=== PATIENT | male | born 1955 | race African-American/Black ===

== ENCOUNTER 2020-02-04 14:33 | Inpatient (IN) | payer OTHER, MEDICAID ==
[~2020-02-04] VITALS: Ht 180.3 cm; Wt 88.5 kg
--- NOTE | 2020-02-04 14:38 | NUR ---
PT IN WHEELCHAIR TO ER BED 07
[2020-02-04 14:47] VITALS: BP 130/80
--- NOTE | 2020-02-04 15:04 | NUR ---
65M wheelchaired to bed C/O SOB/ CHEST PAIN THAT IS NOT RESOLVED BY NTG STARTING LAST WEEK. PT WAS REFERRED HERE FROM [facility] DUE TO HAVING FLUID IN LUNGS AND NEEDING TO BE DIURESED. Observed patient for increased respiratory effort. Patient put on 4L Nasal cannula. Abdomen distended and tender to touch. pt. reports having N/V/D. Last BM was this morning and loose. Observed sores and bruise on BUE due to increased fall within the previous month. Observed bilateral piting edema on the BLE. Palpable pedal pulses bilaterally. PMH: UT, HEART FAILURE, CARDIOMYOPATHY Addendum: 02/04/20 at 1525 by [facility] Dimished breath sounds heard on all lung worley.
[2020-02-04] MEDS ORDERED: FUROSEMIDE 40 MG/4 ML VIAL IVP ONE (15:20)
--- NOTE | 2020-02-04 15:26 | NUR ---
XRAY AT BEDSIDE.
--- NOTE | 2020-02-04 15:45 | NUR ---
pt given urinal for urine sample and for frequent urination after lasix was administered
[2020-02-04] MEDS ORDERED: LEVOFLOXACIN 750 MG/D5W PREMIX 150 ML IV ONE (15:50)
[2020-02-04] MEDS ORDERED: AZITHROMYCIN 500 MG in DEXTROSE 5% 250 ML IV ONE (15:50)
--- NOTE | 2020-02-04 16:03 | NUR ---
LAB AT BEDSIDE
[2020-02-04 16:11] LABS: BASOPHILS % (AUTO) 0.7 % (0.0-2.0); EOSINOPHILS % (AUTO) 0.4 % (0.0-4.0); HEMATOCRIT 48.5 % (36-52); HEMOGLOBIN 15.6 g/dL (12.0-18.0); LYMPHOCYTES # (AUTO) 1.4 K/uL (2.0-11.5); MEAN CORPUSCULAR HEMOGLOBIN 30 pg (27-31); MEAN CORPUSCULAR HGB CONC 32 g/dL (33-37); MEAN CORPUSCULAR VOLUME 94.6 fL (80-94); MONOCYTES # (AUTO) 0.4 K/uL (0.8-1.0); MONOCYTES % (AUTO) 9.3 % (1.7-9.3); NEUTROPHILS # (AUTO) 2.2 K/uL (1.8-7.7); NEUTROPHILS % (AUTO) 54.6 % (42.2-75.2); PLATELET COUNT (AUTO) 116 K/uL (140-450); RED BLOOD CELL COUNT(AUTO) 5.13 MIL/uL (4.20-6.10); RED CELL DISTRIBUTION WIDTH 22.1 % (11.6-13.7); WHITE BLOOD COUNT (AUTO) 4.1 K/uL (4.8-10.8)
[2020-02-04] MEDS ORDERED: AZITHROMYCIN 500 MG INJ VIAL IV ONE (16:13)
--- NOTE | 2020-02-04 16:21 | NUR ---
LAB UNABLE TO DRAW BLOOD CULTURES, PENDING ANTIBIOTICS
[2020-02-04 16:30] LABS: ALBUMIN 2.3 g/dL (3.4-5.0); ANION GAP 10.4 (8-16); CARBON DIOXIDE 28.4 mmol/L (21-32); CREATININE 1.1 mg/dL (0.6-1.3); POTASSIUM 3.8 mmol/L (3.5-5.1); TOTAL BILIRUBIN 1.3 mg/dL (0.0-1.0)
[2020-02-04] MEDS: NACL 0.9% 1,000 ML IV SCH (16:34)
[2020-02-04] MEDS ORDERED: ACETAMINOPHEN 325 MG TAB PO PRN (16:35)
[2020-02-04] MEDS ORDERED: DOCUSATE SODIUM 100 MG GELCAP PO PRN (16:35)
[2020-02-04] MEDS ORDERED: HYDROcodone/APAP 7.5/325 MG 1 TAB PO PRN (16:35)
[2020-02-04] MEDS ORDERED: ONDANSETRON 4 MG/2 ML VIAL IM/IVP PRN (16:35)
[2020-02-04 16:51] LABS: APPEARANCE,URINE CLEAR (CLEAR); BILIRUBIN,URINE NEGATIVE (NEGATIVE); BLOOD, URINE NEGATIVE (NEGATIVE); COLOR,URINE YELLOW (YELLOW); LEUKOCYTE ESTERASE ,URINE NEGATIVE (NEGATIVE); NITRITE, URINE NEGATIVE (NEGATIVE); PH,URINE 6.5 (5.0-9.0); UGLUCOSE NEGATIVE (NEGATIVE)
--- NOTE | 2020-02-04 16:52 | NUR ---
LAB AT BEDSIDE.
--- NOTE | 2020-02-04 16:55 | NUR ---
LAB AT BEDSIDE, UNABLE TO DRAW BLOOD CULTURES FOR A SECOND TIME.
--- NOTE | 2020-02-04 17:08 | NUR ---
NADR TO LASIX MEDICATION.
--- NOTE | 2020-02-04 17:14 | NUR ---
UNABLE TO DRAW BLOOD CULTURES STILL.
[2020-02-04] MEDS ORDERED: ALBUTEROL SULFATE/IPRATROPIU 3 ML SOL IH PRN (17:15)
[2020-02-04] MEDS ORDERED: NITROGLYCERIN 0.4 MG TAB SL PRN (17:15)
--- NOTE | 2020-02-04 17:15 | NUR ---
NO OPEN WOUNDS. SCABS PRESENT TO BILATERAL ARMS
[2020-02-04] MEDS ORDERED: ENAL5TAB48 PO (17:16)
[2020-02-04] MEDS ORDERED: CARV6.25 PO (17:16)
[2020-02-04] MEDS ORDERED: FLUO10CA21 PO (17:16)
[2020-02-04] MEDS ORDERED: NITR0.4T2 SL (17:16)
[2020-02-04] MEDS ORDERED: FURO-572 PO (17:16)
[2020-02-04] MEDS ORDERED: ATOR10TA PO (17:16)
[2020-02-04 17:20] LABS: BARBITURATE, URINE NEGATIVE ng/ml (NEG <=200); BENZODIAZEPINE, URINE NEGATIVE ng/mL (NEG <=200); CANNABINOID, URINE NEGATIVE ng/mL (NEG <=50); COCAINE, URINE POSITIVE ng/mL (NEG <=300); OPIATE, URINE NEGATIVE ng/mL (NEG <=2000); PHENCYCLIDINE SCREEN,URINE NEGATIVE ng/mL (NEG <=25)
--- NOTE | 2020-02-04 18:05 | NUR ---
RECEIVED BEDSIDE SHIFT REPORT FROM HUB INVENTORY SPECIALIST NURSE FOR CONTINUATION OF CARE.
--- NOTE | 2020-02-04 18:05 | NUR ---
Patient will be admitted to care of Dr. Cali. Admited to Tele. Will go to room 126B. Belongings list completed. VSS. Report to SHERRI Flores.
--- NOTE | 2020-02-04 18:05 | NUR ---
NADR, PAIN 04/07
[2020-02-04 18:07] LABS: PROTHROMBIN TIME 15.3 secs (10.8-13.4)
--- NOTE | 2020-02-04 18:09 | NUR ---
BLOOD CULTURES ACQUIRED AND AZITHROMYCIN STARTED PRIOR TO TRANSFER.
[2020-02-04 18:19] LABS: MAGNESIUM 1.6 mg/dL (1.8-2.4); PHOSPHORUS 2.8 mg/dL (2.5-4.9); THYROID STIMULATING HORMONE 3.85 uIU/mL (0.34-3.74)
[2020-02-04] MEDS: AZITHROMYCIN 250 MG in DEXTROSE 5% 250 ML IV SCH (18:59)
[2020-02-04] MEDS: MORPHINE SULFATE 2 MG/ML SYR IVP PRN (19:00)
--- NOTE | 2020-02-04 19:25 | NUR ---
BEDSIDE SHIFT REPORT GIVEN TO OTOLARYNGOLOGY SURGEON FOR CONTINUATION OF CARE.
[2020-02-04] MEDS ORDERED: cefTRIAXone 1,000 MG VIAL ONE (19:42)
[2020-02-04 20:00] VITALS: BP 140/59
[2020-02-04] MEDS: ALBUTEROL SULFATE/IPRATROPIU 3 ML SOL IH SCH (20:10)
--- NOTE | 2020-02-04 20:25 | NUR ---
RECEIVED PT FROM AM SHIFT. PT IS IN NO APPARENT RESPIRATORY DISTRESS AT THIS TIME: HR 81, RR 18, COURSE BREATH SOUNDS, AND SPO2 90% ON 4L NC. HHN TX GIVEN ORDERED WITH NO ADVERSE REACTION. HOB > 30 DEGREES, BVM AT BEDSIDE. WILL CONTINUE TO MONITOR PT.
--- NOTE | 2020-02-04 20:26 | NUR ---
RECEIVED PT FROM AM SHIFT NURSE FOR PENDING ADMIT, PT SLEEPING AT THIS TIME. WITH LEVAQUIN ON THE RIGHT FA G 22, LEVAQUIN INFUSING RIGHT NOW. PER PREVIOUS SHIFT PT Pema Mcadams O X 4. ON 2 LPM NC, WILL CONTINUE TO MONITOR. PLACED ON LOW BED. CALL LIGHT WITHIN REACH.
--- NOTE | 2020-02-04 21:41 | NUR ---
PT C/O OF CHEST PAIN WHEN RT WAS AT BEDSIDE, TAKING HIS ABG PAIN IS 6/10 PER PT. Addendum: 02/04/20 at 2151 by Delores Dai RN WILL ADMINISTER NITROGLYCERIN AND WILL REASSESS
--- NOTE | 2020-02-04 21:42 | NUR ---
BAR CODE OF NITROGLYCERIN 25 TABS IN 1 VIAL, TOOK 1, CANNOT SCAN ANYMORE SINCE PUT THE VIAL BACK THERE AND TOOK ONLY 1 TAB OIUT OF THE 25 TABS IN 1 VIAL. CHARGE NURSE AWARE.
--- NOTE | 2020-02-04 21:43 | NUR ---
PT ASKED ABOUT DIARRHEA, SAID THAT HE HAD IT AT HOME (CHRONIC), WILL INFORM ME ONCE HE CAN HAVE A BM. WILL INFORM IF STOOL IS WATERY. FOR OBSERVATION YET
--- NOTE | 2020-02-04 23:00 | NUR ---
PT SLEEPING NOW; NO MORE COMPLAINTS OF CHEST PAIN; WILL MONITOR
[2020-02-05] VITALS: BP 139/59
--- NOTE | 2020-02-05 00:10 | NUR ---
PT SLEEPING IN BED COMFORTABLY. NO ACUTE DISTRESS NOTED. Addendum: 02/06/20 at 0110 by Chris Wharton RN WRONG TIME
[2020-02-05 04:00] VITALS: BP 113/77
--- NOTE | 2020-02-05 06:06 | NUR ---
INCENTIVE SPIROMETRY DONE. # OF BREATHS 10 WITH AVERAGE VOLUME OF 1500ML. PREDICTED VOLUME 1800ML.
--- NOTE | 2020-02-05 06:15 | NUR ---
PT HAD A BM, WTAREY BUT W/ SOME MODERATE FORMED STOOL NOTED. Addendum: 02/05/20 at 0616 by Delores Dai RN PT CLEANED AND CHANGED
--- NOTE | 2020-02-05 06:49 | NUR ---
PT SLEEPING BUT EASILY AROUSABLE, PT IN STABLE CONDITION AT THIS TIME, WILL ENDORSE TO NEXT SHIFT
--- NOTE | 2020-02-05 07:25 | NUR ---
RECEIVED REPORT FROM ASBESTOS ABATEMENT TECHNICIAN NURSE. PT IS SLEEPING, NO SIGNS OF DISTRESS. PT HAS IV ON RIGHT FA G22 TKO. PT HAS O2 AT 2LPM. PT IS FROM HOME, FULL CODE, NKA. CALL LIGHT WITHIN PT'S REACH, BED ON LOW, SIDE RAILS UP. WILL CONTINUE TO MONITOR.
[2020-02-05 07:52] LABS: CHOL/HDL RATIO 4.2 (1-4.5)
[2020-02-05 08:00] VITALS: BP 135/61
[2020-02-05] MEDS: ALBUTEROL SULFATE/IPRATROPIU 3 ML SOL IH SCH ×3 (08:32→19:00)
--- NOTE | 2020-02-05 08:48 | NUR ---
PATIENT HAS BEEN SCREENED AND CATEGORIZED MODERATE NUTRITION RISK. PATIENT WILL BE SEEN WITHIN 3-5 DAYS OF ADMISSION. 02/07/20 02/09/[address]
[2020-02-05] MEDS: ASPIRIN 81 MG TAB.CHEW PO SCH (10:47)
[2020-02-05] MEDS: FUROSEMIDE 40 MG/4 ML VIAL IVP SCH ×2 (10:48→17:23)
[2020-02-05] MEDS: LACTOBACILLUS RHAMNOSUS GG 1 EACH CAP PO SCH (10:48)
--- NOTE | 2020-02-05 10:55 | NUR ---
SCHEDULED MEDS GIVEN. PT TOLERATED WELL. WILL CONTINUE TO MONITOR
[2020-02-05 12:00] VITALS: BP 107/81
[2020-02-05] MEDS: MORPHINE SULFATE 2 MG/ML SYR IVP PRN (12:43)
--- NOTE | 2020-02-05 12:43 | NUR ---
PT COMPLAINED OF ABDOMINAL PAIN 08/08. MORPHINE IVP GIVEN. WILL CONTINUE TO MONITOR
--- NOTE | 2020-02-05 13:30 | NUR ---
CHERIE FROM LAB CALLED FOR CRITICAL LAB LACTIC ACID 2.7, WAS INFORMED
[2020-02-05 16:00] VITALS: BP 118/82
[2020-02-05] MEDS: NACL 0.9% 1,000 ML IV SCH (16:34)
--- NOTE | 2020-02-05 17:30 | NUR ---
SCHEDULED MEDS GIVEN. WILL CONTINUE TO MONITOR
[2020-02-05] MEDS: AZITHROMYCIN 250 MG in DEXTROSE 5% 250 ML IV SCH (19:02)
--- NOTE | 2020-02-05 19:20 | NUR ---
REPORT GIVEN TO ELEVATING GRADER OPERATOR NURSE. PT IS STABLE. CALL LIGHT WITHIN PT'S REACH.
--- NOTE | 2020-02-05 19:21 | NUR ---
RECEIVED REPORT FROM DAY SHIFT NURSE, GERI. PT AWAKE, RESTING IN BED, NO SIGNS OF DISTRESS. PT HAS IV ON RIGHT FA G22 TKO. BREATHING EVEN AND UNLABORED WITH O2 AT 2LPM. BOARD UPDATED, SKIN INTACT, WARM AN DRY TO TOUCH. CALL LIGHT WITHIN PT'S REACH, BED ON LOW, SIDE RAILS UP. WILL CONTINUE TO MONITOR.
--- NOTE | 2020-02-05 19:39 | NUR ---
PATIENT REFUSED 1900 HHNTX. PT HAD ONE AT 1545. PT WILL CALL IF HE NEEDS ONE AT NIGHT. NO SOB NOTED
[2020-02-05 20:00] VITALS: BP 114/78
--- NOTE | 2020-02-05 20:18 | NUR ---
GIVEN HEPARIN MD ORDERED. PT TOLERATED WELL.
--- NOTE | 2020-02-05 22:15 | NUR ---
PT SLEEPING IN BED COMFORTABLY. NO ACUTE DISTRESS NOTED.
[2020-02-06] VITALS: BP 102/73
--- NOTE | 2020-02-06 00:10 | NUR ---
PT SLEEPING IN BED COMFORTABLY. NO ACUTE DISTRESS NOTED.
--- NOTE | 2020-02-06 02:31 | NUR ---
PT SLEEPING IN BED. NO ACUTE DISTRESS NOTED. WILL CONTINUE TO MONITOR.
[2020-02-06 04:00] VITALS: BP 125/90
--- NOTE | 2020-02-06 05:05 | NUR ---
RECEIVED CALL FROM LAB FOR BLOOD CULTURE RESULT, GRAM POSITIVE COCCI, REPORTED TO RESIDENT
[2020-02-06 06:24] LABS: BASOPHILS # (AUTO) 0.1 K/uL (0.00-0.22); BASOPHILS % (AUTO) 2.4 % (0.0-2.0); EOSINOPHILS % (AUTO) 0.5 % (0.0-4.0); HEMATOCRIT 45.8 % (36-52); HEMOGLOBIN 14.7 g/dL (12.0-18.0); LYMPHOCYTES # (AUTO) 1.7 K/uL (2.0-11.5); LYMPHOCYTES % (AUTO) 36.4 % (20.5-51.1); MEAN CORPUSCULAR HEMOGLOBIN 30 pg (27-31); MEAN CORPUSCULAR HGB CONC 32 g/dL (33-37); MEAN CORPUSCULAR VOLUME 94.7 fL (80-94); MONOCYTES # (AUTO) 0.6 K/uL (0.8-1.0); MONOCYTES % (AUTO) 12.3 % (1.7-9.3); NEUTROPHILS # (AUTO) 2.3 K/uL (1.8-7.7); NEUTROPHILS % (AUTO) 48.4 % (42.2-75.2); PLATELET COUNT (AUTO) 123 K/uL (140-450); RED BLOOD CELL COUNT(AUTO) 4.84 MIL/uL (4.20-6.10); RED CELL DISTRIBUTION WIDTH 21.9 % (11.6-13.7); WHITE BLOOD COUNT (AUTO) 4.7 K/uL (4.8-10.8)
[2020-02-06 06:35] LABS: ANION GAP 12.7 (8-16); CARBON DIOXIDE 28.5 mmol/L (21-32); CREATININE 1.5 mg/dL (0.6-1.3); POTASSIUM 4.2 mmol/L (3.5-5.1)
[2020-02-06 06:50] LABS: MAGNESIUM 1.7 mg/dL (1.8-2.4); PHOSPHORUS 3.8 mg/dL (2.5-4.9)
[2020-02-06] MEDS: ALBUTEROL SULFATE/IPRATROPIU 3 ML SOL IH SCH ×3 (07:00→19:00)
--- NOTE | 2020-02-06 07:16 | NUR ---
ENDORSED PT TO DAY SHIFT NURSEGERI FOR CONTINUOUS CARE.
--- NOTE | 2020-02-06 07:22 | NUR ---
RECEIVED REPORT FROM PROCESS SPECIALIST NURSE. PT IS SLEEPING. NO SIGNS OF DISTRESS. WILL CONTINUE TO MONITOR
[2020-02-06 08:00] VITALS: BP 137/100
[2020-02-06] MEDS ORDERED: CARVEDILOL 6.25 MG TAB PO SCH (09:13)
[2020-02-06] MEDS: FUROSEMIDE 40 MG/4 ML VIAL IVP SCH ×2 (10:12→16:13)
[2020-02-06] MEDS: LACTOBACILLUS RHAMNOSUS GG 1 EACH CAP PO SCH (10:13)
[2020-02-06] MEDS: ATORVASTATIN 20 MG TAB PO SCH (10:13)
[2020-02-06] MEDS: ASPIRIN 81 MG TAB.CHEW PO SCH (10:13)
--- NOTE | 2020-02-06 10:25 | NUR ---
SCHEDULED MEDS GIVEN EXCEPT HEPARIN HOLD PER PARAMETER. PLT IS 123. PT TOLERATED WELL. PT WAS INSTRUCTED TO CALL THE NURSE ONCE HE PEE SO WE CAN SEND THE SAMPLE TO THE LAB. PT VERBALIZED UNDERSTANDING.WILL CONTINUE TO MONITOR.
--- NOTE | 2020-02-06 10:43 | NUR ---
Late entry. Confirmed with RN that Zithromax IV started at 1745 and completed at 1845
[2020-02-06 12:00] VITALS: BP 126/94
--- NOTE | 2020-02-06 12:29 | NUR ---
* ST NOTE * Pt seen at bedside w/ present. Pt consenting to session w/ present. Pt alert, cooperative and engaged throughout session, reporting no c/o pain at this time. Pt's reporting he has dentures at home but does not prefer to use them. Bedside dysphagia and oral mechanism exams completed. See evaluation report for further details. Pt tolerating 2/2 alternating PO trials of regular solid saltine crackers, initially moistening/soaking crackers in saliva prior to mastication and initiation of swallow. Pt presenting with mild to occasional residue in oral cavity during and after PO intake of regular solids at this time. Pt reporting he "hates" puree texture however. Pt also tolerating 4/4 alternating PO trials of successive sips of thin liquid apple juice via a straw, all w/o s/s of aspiration or choking. Because pt demonstrating difficulty masticating solids at this time, pt presenting with mild oral phase dysphagia and suspected pharyngeal swallow WFL. Clinician thus recommending PO diet consistency of moist, mechanical soft-ground textures w/thin liquids for all meals. Pt and education completed re: aspiration precautions, safe swallow compensatory strategies, and ways to prepare recommended PO diet consistency at home, w/both verbalizing understanding and agreement w/clinician's recommendations. No further ST follow up recommended at this time. Pt, caregiver/ and caregiver/Nsg Luz education completed re: results of evaluation; benefits of abiding by recommended PO diet consistency and aspiration precautions; and prognosis for improvement; with pt and caregiver/ verbalizing understanding and agreement w/clinician's recommendations w/all of pt's and 's questions answered by clinician. Recommend: - PO DIET CONSISTENCY OF MECHANICAL SOFT-GROUND MOIST TEXTURES W/THIN LIQUIDS for all meals - WHOLE PILL PO MEDICATION ADMINISTRATION 1 PILL AT A TIME W/PUREE TEXTURES (PUDDING OR APPLE SAUCE) - FNS/DIETARY SERVICES: ADD EXTRA SAUCE/GRAVY TO MEATS AND VEGETABLES PLEASE FOR MOIST GROUND TEXTURE - Pt requires assistance w/feeding - CUE/REMIND PT TO SIT UP AT 80-90 DEGREE ANGLE DURING PO INTAKE; EAT/DRINK SLOWLY; ALTERNATE BTWN SOLIDS & LIQUIDS; AND TO USE SMALL BITES/SIPS No further ST follow up recommended at this time. NOMS Level 3 Time In/Out 11:15 - 11:45
[2020-02-06 16:00] VITALS: BP 109/66
[2020-02-06] MEDS: CARVEDILOL 6.25 MG TAB PO SCH (16:13)
--- NOTE | 2020-02-06 16:21 | NUR ---
SCHEDULED MEDS GIVEN. PT TOLERATED WELL.
[2020-02-06] MEDS: NACL 0.9% 1,000 ML IV SCH (16:34)
[2020-02-06] MEDS: AZITHROMYCIN 250 MG in DEXTROSE 5% 250 ML IV SCH (17:26)
--- NOTE | 2020-02-06 19:27 | NUR ---
REPORT GIVEN TO SPANISH MEDICAL INTERPRETER NURSE FOR CONTINUITY OF CARE. PT IS STABLE. CALL LIGHT WITHIN PT'S REACH. BE D ON LOW, SIDE RAILS UP.
[2020-02-06] MEDS ORDERED: VANCOMYCIN PER PHARMACY MC PRN (19:45)
[2020-02-06 20:00] VITALS: BP 118/75
[2020-02-06] MEDS ORDERED: VANCOMYCIN HCL 1,250 MG in NACL 0.9% 250 ML IV SCH (20:25)
[2020-02-07] VITALS: BP 105/69
[2020-02-07 04:00] VITALS: BP 110/65
[2020-02-07 06:20] LABS: MAGNESIUM 1.5 mg/dL (1.8-2.4); PHOSPHORUS 4.1 mg/dL (2.5-4.9)
[2020-02-07 06:25] LABS: ANION GAP 10.7 (8-16); CARBON DIOXIDE 32.3 mmol/L (21-32); CREATININE 1.4 mg/dL (0.6-1.3)
[2020-02-07 06:31] LABS: BASOPHILS # (AUTO) 0.1 K/uL (0.00-0.22); BASOPHILS % (AUTO) 1.8 % (0.0-2.0); HEMATOCRIT 44.1 % (36-52); HEMOGLOBIN 14.3 g/dL (12.0-18.0); LYMPHOCYTES # (AUTO) 1.6 K/uL (2.0-11.5); LYMPHOCYTES % (AUTO) 37.8 % (20.5-51.1); MEAN CORPUSCULAR HEMOGLOBIN 31 pg (27-31); MEAN CORPUSCULAR HGB CONC 32 g/dL (33-37); MEAN CORPUSCULAR VOLUME 94.5 fL (80-94); MONOCYTES # (AUTO) 0.4 K/uL (0.8-1.0); MONOCYTES % (AUTO) 9.2 % (1.7-9.3); NEUTROPHILS # (AUTO) 2.1 K/uL (1.8-7.7); NEUTROPHILS % (AUTO) 50.2 % (42.2-75.2); PLATELET COUNT (AUTO) 127 K/uL (140-450); RED BLOOD CELL COUNT(AUTO) 4.66 MIL/uL (4.20-6.10); RED CELL DISTRIBUTION WIDTH 22.1 % (11.6-13.7); WHITE BLOOD COUNT (AUTO) 4.2 K/uL (4.8-10.8)
[2020-02-07] MEDS: ALBUTEROL SULFATE/IPRATROPIU 3 ML SOL IH SCH ×3 (06:57→19:34)
--- NOTE | 2020-02-07 07:30 | NUR ---
RECEIVED REPORT FROM SUPERVISOR PLEATING NURSE. PATIENT LYING DOWN IN BED SLEEPING, AROUSABLE BY VOICE. NO DISTRESS NOTED. DENIES ANY PAIN. AAOX4, CALM, COOPERATIVE, SKIN COLOR APPROPRIATE TO ETHNICITY, WARM TO TOUCH. SKIN INTACT. RESPIRATIONS EVEN, UNLABORED, ON ROOM AIR. IV SITE INTACT, PATENT, AND INFUSING IVF PER MD ORDERS. SAFETY MEASURES IN PLACE, CALL LIGHT WITHIN REACH. WILL CONTINUE TO MONITOR.
[2020-02-07 08:00] VITALS: BP 129/87
[2020-02-07] MEDS ORDERED: VANCOMYCIN 1,000 MG in DEXTROSE 5% 250 ML IV SCH (09:00)
--- NOTE | 2020-02-07 09:09 | NUR ---
DISCHARGE PLANNING: RECEIVED AN AN ORDER FOR DC PLAN TO SNF TOMORROW FOR IV ANTIBIOTICS AND PT. MET WITH THE PATIENT AT THE BEDSIDE TO DISCUSS DC PLANNING. HE STATED TO WAIT FOR HIS . CONTACTED TAVON LAZARO AT [phone] REGARDING DC PLAN, SHE STATED SHE WILL BE IN THE HOSPITAL BEFORE NOON TO SEE HER . PRIMARY RN NABOR MADE AWARE TO INFORM ME ONCE THE IS HERE. Addendum: 02/07/20 at 1700 by Katherine Lambert CM LATE ENTRY: MET WITH THE PATIENT AND HIS AT THE BEDSIDE, IMM AND CHOICE LETTER DISCUSSED. ALL QUESTIONS AND CONCERNS ANSWERED. SIGNED AND PLACED IN THE CHART. PER [facility], THEY ARE ABLE TO ACCEPT THE PATIENT. Addendum: 02/08/20 at 1025 by Blaire Pena CM DC PLANNING: RECEIVED A CALL FROM [facility] ,PT CAN GO TO ROOM 12B AND PER [facility] WILL ARRANGE TRANSPORT RADIOLOGY ADMINISTRATOR TIME WILL BE 2 PM # TO GIVE REPORT [phone] NOTIFIED ALIS POLANCO
[2020-02-07] MEDS: ATORVASTATIN 20 MG TAB PO SCH (10:02)
[2020-02-07] MEDS: FLUoxetine 10 MG CAP PO SCH (10:02)
[2020-02-07] MEDS: ASPIRIN 81 MG TAB.CHEW PO SCH (10:06)
[2020-02-07] MEDS: CARVEDILOL 6.25 MG TAB PO SCH ×2 (10:06→18:27)
[2020-02-07] MEDS: FUROSEMIDE 40 MG TAB PO SCH (10:06)
[2020-02-07] MEDS: LACTOBACILLUS RHAMNOSUS GG 1 EACH CAP PO SCH (10:06)
--- NOTE | 2020-02-07 10:19 | NUR ---
PATIENT LYING DOWN IN BED, SLEEPING, AROUSABLE BY VOICE. NO DISTRESS NOTED. DENIES ANY PAIN. SCHEDULED MEDICATIONS DUE GIVEN. WILL CONTINUE TO MONITOR.
[2020-02-07] MEDS ORDERED: MAG SULF 2000 MG/WATER PREMIX 50 ML IV SCH (11:00)
[2020-02-07 12:00] VITALS: BP 125/82
--- NOTE | 2020-02-07 12:53 | NUR ---
PATIENT LYING DOWN IN BED SLEEPING, AROUSABLE BY VOICE. NO DISTRESS NOTED. DENIES ANY PAIN. SCHEDULED MEDICATIONS DUE GIVEN. WILL CONTINUE TO MONITOR.
--- NOTE | 2020-02-07 15:15 | NUR ---
PATIENT LYING DOWN IN BED SLEEPING, AROUSABLE BY VOICE. NO DISTRESS NOTED. CONDITION UNCHANGED. WILL CONTINUE TO MONITOR.
[2020-02-07 16:00] VITALS: BP 130/80
[2020-02-07] MEDS: NACL 0.9% 1,000 ML IV SCH (16:34)
[2020-02-07] MEDS: AZITHROMYCIN 250 MG in DEXTROSE 5% 250 ML IV SCH (18:26)
--- NOTE | 2020-02-07 18:27 | NUR ---
SCHEDULED MEDICATIONS DUE GIVEN. WILL CONTINUE TO MONITOR.
--- NOTE | 2020-02-07 19:18 | NUR ---
GAVE REPORT TO METAPHYSICIST NURSE FOR CONTINUITY OF CARE. PATIENT IN STABLE CONDTION.
--- NOTE | 2020-02-07 19:20 | NUR ---
RECEIVED PT ON BED, AAOX4, VITAL SIGNS STABLE, DENIES ANY PAIN, NO SOB NOTED, UNABLE TO COLLECT SPUTUM SPECIMEN, PT DRY AND NO PHLEGM, SPECIMEN CONTAINER AT BEDSIDE, IVF INFUSING WELL, PLAN OF CARE DISCUSSED, SAFETY MEASURES IN PLACE, BED LOCKED AND IN LOWEST POSITION, CALL LIGHT WITHIN REACH.
[2020-02-07 20:00] VITALS: BP 124/85
--- NOTE | 2020-02-07 21:20 | NUR ---
PT REFUSED HEPARIN, STATED NOT TONIGHT, RISK AND BENEFITS EXPLAINED BUT PT STILL REFUSING, VOIDED FREELY PER URINAL, NO DISTRESS NOTED, MONITORED CLOSELY.
[2020-02-08] VITALS: BP 108/72
--- NOTE | 2020-02-08 | NUR ---
PT SLEEPING, EASILY AROUSABLE, VITAL SIGNS STABLE, DENIES ANY PAIN, NO SOB NOTED, IVF INFUSING WELL, CONTINUE TO MONITOR CLOSELY.
[2020-02-08 04:00] VITALS: BP 110/72
--- NOTE | 2020-02-08 04:00 | NUR ---
PT SLEEPING, EASILY AROUSABLE, VITAL SIGNS STABLE, NO SOB NOTED, IVF INFUSING WELL, MONITORED CLOSELY.
[2020-02-08 05:55] LABS: BASOPHILS % (AUTO) 1.6 % (0.0-2.0); EOSINOPHILS % (AUTO) 0.8 % (0.0-4.0); HEMATOCRIT 41.1 % (36-52); HEMOGLOBIN 13.6 g/dL (12.0-18.0); LYMPHOCYTES # (AUTO) 1.1 K/uL (2.0-11.5); LYMPHOCYTES % (AUTO) 40.8 % (20.5-51.1); MEAN CORPUSCULAR HEMOGLOBIN 31 pg (27-31); MEAN CORPUSCULAR HGB CONC 33 g/dL (33-37); MEAN CORPUSCULAR VOLUME 93.5 fL (80-94); MONOCYTES # (AUTO) 0.2 K/uL (0.8-1.0); MONOCYTES % (AUTO) 8.3 % (1.7-9.3); NEUTROPHILS # (AUTO) 1.3 K/uL (1.8-7.7); NEUTROPHILS % (AUTO) 48.5 % (42.2-75.2); PLATELET COUNT (AUTO) 104 K/uL (140-450); WHITE BLOOD COUNT (AUTO) 2.7 K/uL (4.8-10.8)
[2020-02-08 06:32] LABS: ANION GAP 9.8 (8-16); CARBON DIOXIDE 29.2 mmol/L (21-32); CREATININE 1.1 mg/dL (0.6-1.3)
[2020-02-08 06:43] LABS: MAGNESIUM 1.7 mg/dL (1.8-2.4); PHOSPHORUS 3.1 mg/dL (2.5-4.9)
--- NOTE | 2020-02-08 06:50 | NUR ---
NEW ORDER OF PICC LINE INSERTION TODAY, SOFTWARE QUALITY AUTOMATION ENGINEER AMADA CALLED PICC LINE NURSE AND LEFT MESSAGE, PT SLEEPING AT THIS TIME, WILL ENDORSE TO AM SHIFT.
--- NOTE | 2020-02-08 07:20 | NUR ---
RECEIVED REPORT FROM EDUCATION REPORTER NURSE. NO C/O PAIN, RESPIRATION EVEN UNLABORED. IV G22 ON RFA IV PATENT AND INTACT ON NS RUNNING AT 10ML/HR. ALL SAFETY MEASURES IN PLACE. BED IS AT LOW POSITION. CALL LIGHT WITHIN REACH. WILL CONTINUE TO MONITOR. Addendum: 02/08/20 at 1245 by Manny Plaza RN SPECIFIED TIME OF ENDORSEMENT FOR THE ABOVE NOTES IS 5695
--- NOTE | 2020-02-08 07:24 | NUR ---
PT SLEEPING, NO SIGNS OF DISTRESS, REPORT GIVEN TO HSERRI URRUTIA FOR CONTINUITY OF CARE.
[2020-02-08] MEDS: ALBUTEROL SULFATE/IPRATROPIU 3 ML SOL IH SCH ×2 (07:35→13:21)
[2020-02-08 07:52] LABS: RED CELL DISTRIBUTION WIDTH 21.5 % (11.6-13.7)
[2020-02-08 08:00] VITALS: BP 109/74
[2020-02-08] MEDS: LACTOBACILLUS RHAMNOSUS GG 1 EACH CAP PO SCH (08:59)
[2020-02-08] MEDS: ATORVASTATIN 20 MG TAB PO SCH (08:59)
[2020-02-08] MEDS: FLUoxetine 10 MG CAP PO SCH (09:00)
[2020-02-08] MEDS ORDERED: MAG SULF 2000 MG/WATER PREMIX 50 ML IV SCH (09:00)
[2020-02-08] MEDS: ASPIRIN 81 MG TAB.CHEW PO SCH (09:00)
[2020-02-08] MEDS: FUROSEMIDE 40 MG TAB PO SCH (09:03)
[2020-02-08] MEDS: CARVEDILOL 6.25 MG TAB PO SCH (09:04)
--- NOTE | 2020-02-08 09:15 | NUR ---
DUE MORNING MEDS GIVEN ORDERED. TOLERATED WELL. HEPARIN GIVEN WITH PLT OF 127. MAGNESIUM IV GIVEN ORDERED WITH MG OF 1.7
--- NOTE | 2020-02-08 09:38 | NUR ---
OBTAINED CONSENT FOR PICC LINE INSERTION. EXPLAINED THE PROCEDURE TO PT. PT VERBALIZED UNDERSTANDING
--- NOTE | 2020-02-08 09:55 | NUR ---
CALLED PICC LINE NURSECHERYLE AT [phone] AND INFORMED THAT PT SIGNED THE CONSENT FOR THE PICC LINE INSERTION AND SAID APPROVAL BUT WANTS TO BE HER WHEN THE PROCEDURE IS DONE, AND SHE WILL COME AT 1100. CHERYLE, PICC LINE NURSE WAS INFORMED AND SAID THAT HE WILL BE COMING AT 1130H.
[2020-02-08] MEDS ORDERED: LACT10CA1 PO (10:18)
[2020-02-08] MEDS ORDERED: CEFT1SOL1 IV (10:18)
--- NOTE | 2020-02-08 11:36 | NUR ---
CALLED JOE ALVARENGA AT [phone] AND GAVE REPORT TO MARGARETTE VALDEZ REGARDING CARE MANAGEMENT AND DISCHARGE INSTRUCTIONS FOR THE PT. DENTAL TECHNICIAN VERBALIZED UNDERSTANDING, INFORMED PT WILL BE PLACE IN RM 12-B UNDER DR FORD, SERVICE RESTORER EMERGENCY TIME AT 1400
[2020-02-08 12:00] VITALS: BP 122/81
--- NOTE | 2020-02-08 12:00 | NUR ---
PICC LINE INSERTION BY PICC LINE NURSE WAS STARTED NOW, TIME OUT WAS DONE AND VERIFIED PLACEMENT. AND X-RAY INGOT STRIPPER ON BEDSIDE, PT IS STABLE AT THIS TIME. Addendum: 02/08/20 at 1243 by Manny Plaza RN MID-LINE INSERTION WAS PERFORMED TO PT ON THE SPECIFIED NOTES ABOVE.
--- NOTE | 2020-02-08 12:30 | NUR ---
MIDLINE WAS FINISHED. PICC LINE NURSE VERBALIZED THAT PICC LINE IS GOOD TO USE
--- NOTE | 2020-02-08 12:31 | NUR ---
MIDLINE WAS INSERTED ON THE LEFT UA, DOUBLE LUMEN.
--- NOTE | 2020-02-08 14:15 | NUR ---
DISCHARGED PT TO [facility] ACCOMPANIED BY AND 2 TRANSPORT PERSONNEL. DISCHARGE TEACHINGS GIVEN TO PT AND AT BEDSIDE, PT VERBALIZED UNDERSTANDING. PERIPHERAL LINE ON THE RFA REMOVED. MIDLINE DOUBLE LUMEN LEFT IN PLACE AND INTACT IN AMBAR ON SALINE LOCK. ARMBAND REMOVED. PT STABLE AT THIS TIME
== END 2020-02-08 14:42 | DRG 177 ==
LOC: MED 14:33 → MTU 16:37 → MMU 17:06
PROVIDERS: ADMIT General Practice; ATTEND General Practice
PROC: 05HY33Z Insertion of Infusion Device into Upper Vein, Percutaneous Approach (ICD-10-PCS; principal; 2020-02-08)
PROC: B54NZZA Ultrasonography of Left Upper Extremity Veins, Guidance (ICD-10-PCS; 2020-02-08)
DX: J15.211 Pneumonia due to Methicillin susceptible Staphylococcus aureus (principal); I50.43 Acute on chronic combined systolic (congestive) and diastolic (congestive) heart failure; E43 Unspecified severe protein-calorie malnutrition; J96.01 Acute respiratory failure with hypoxia; J44.1 Chronic obstructive pulmonary disease with (acute) exacerbation; J44.0 Chronic obstructive pulmonary disease with (acute) lower respiratory infection; E87.2 Acidosis; R65.10 Systemic inflammatory response syndrome (SIRS) of non-infectious origin without acute organ dysfunction; Z68.27 Body mass index [BMI] 27.0-27.9, adult; E78.5 Hyperlipidemia, unspecified; I11.0 Hypertensive heart disease with heart failure; I25.10 Atherosclerotic heart disease of native coronary artery without angina pectoris; I25.5 Ischemic cardiomyopathy; E87.8 Other disorders of electrolyte and fluid balance, not elsewhere classified; E83.51 Hypocalcemia; D69.6 Thrombocytopenia, unspecified; E16.2 Hypoglycemia, unspecified; I73.9 Peripheral vascular disease, unspecified; F15.129 Other stimulant abuse with intoxication, unspecified; F14.129 Cocaine abuse with intoxication, unspecified; Z71.51 Drug abuse counseling and surveillance of drug abuser; E83.42 Hypomagnesemia; I25.2 Old myocardial infarction; Z87.891 Personal history of nicotine dependence; Z79.899 Other long term (current) drug therapy; Z98.61 Coronary angioplasty status
CPT/HCPCS: 36415; 36600; 71045; 80048; 80053; 80202; 80305; 81003; 82803; 83036; 83605; 83735; 83880; 84100; 84443; 84484; 85025; 85610; 85730; 87040; 87081; 87086; 87186; 92610; 93005; 93925; 93970; 94640; 96365; 96375; 97112; 97116; 97161-GP; 97530; 99291; C1751; J0456; J0696; J1644; J1940; J1956; J2270; J3370; J3475; J7030; J7060; Q0092

== ENCOUNTER 2021-01-11 12:28 | Inpatient (IN) | payer OTHER, MEDICAID, SELFPAY ==
[~2021-01-11] VITALS: Ht 177.8 cm; Wt 76.7 kg
[~2021-01-11 12:28] MED LIST: ATOR10TA PO; CARV6.25 PO; CEFT1SOL1 IV; ENAL5TAB48 PO; FLUO10CA21 PO; FURO-572 PO; LACT10CA1 PO; NITR0.4T2 SL
--- NOTE | 2021-01-11 12:28 | NUR ---
Patient BIBA ALS accompanied by LACoFD, transferred to bed 10. RN evaluating the patient at bedside.
[2021-01-11 12:31] VITALS: BP 113/75
[2021-01-11] MEDS ORDERED: PIPERACILLIN/TAZOBACTAM 4.5 GM in DEXTROSE 5% 100 ML IV ONE (13:00)
[2021-01-11] MEDS ORDERED: VANCOMYCIN 1,000 MG in DEXTROSE 5% 250 ML IV ONE (13:00)
--- NOTE | 2021-01-11 13:00 | NUR ---
65 Y/O M BIBA FOR FACIAL EDEMA AND SOB. PT STATES IT MAY HAVE BEEN FROM A SPIDER BITE. BITE AND SYMPTOMS STARTED 01/09/21 ON THE BRIDGE OF THE NOSE. PMH OF CHF, HTN. NO N&V. WAS ON FM 15L AT 100%, CURRENTLY ON RA 98%. PT IS CURRENTLY UNABLE TO SEE, BUT IS A&O X4. UNABLE TO AMBULATE DUE TO VISION. DENIES ANY SYMPTOMS OF COVID OR CONTACT WITH ANYONE POSITIVE FOR COVID.
[2021-01-11] MEDS ORDERED: PIPERACILLIN/TAZOBACTAM 4.5 GM VIAL IV ONE (13:04)
--- NOTE | 2021-01-11 13:30 | NUR ---
IMAGING IS AT BEDSIDE
--- NOTE | 2021-01-11 13:31 | NUR ---
LABS WERE DRAWN AND GIVEN TO LAB WELL WYATT. CONSENT WAS GIVEN BY PT.
--- NOTE | 2021-01-11 13:33 | NUR ---
X-Ray at bedside.
[2021-01-11 13:37] LABS: BASOPHILS # (AUTO) 0.1 K/uL (0.00-0.22); BASOPHILS % (AUTO) 0.6 % (0.0-2.0); EOSINOPHILS # (AUTO) 0.1 K/uL (0-0.4); EOSINOPHILS % (AUTO) 0.5 % (0.0-4.0); HEMATOCRIT 43.4 % (36-52); LYMPHOCYTES # (AUTO) 0.5 K/uL (2.0-11.5); LYMPHOCYTES % (AUTO) 3.5 % (20.5-51.1); MEAN CORPUSCULAR HEMOGLOBIN 29 pg (27-31); MEAN CORPUSCULAR HGB CONC 32 g/dL (33-37); MEAN CORPUSCULAR VOLUME 90.6 fL (80-94); MONOCYTES # (AUTO) 0.7 K/uL (0.8-1.0); MONOCYTES % (AUTO) 5.1 % (1.7-9.3); NEUTROPHILS # (AUTO) 12.1 K/uL (1.8-7.7); NEUTROPHILS % (AUTO) 90.3 % (42.2-75.2); PLATELET COUNT (AUTO) 103 K/uL (140-450); RED BLOOD CELL COUNT(AUTO) 4.79 MIL/uL (4.20-6.10); RED CELL DISTRIBUTION WIDTH 17.2 % (11.6-13.7); WHITE BLOOD COUNT (AUTO) 13.4 K/uL (4.8-10.8)
[2021-01-11 13:56] LABS: ALBUMIN 2.6 g/dL (3.4-5.0); ANION GAP 16.7 (8-16); CARBON DIOXIDE 23.2 mmol/L (21-32); CREATININE 2.2 mg/dL (0.6-1.3); POTASSIUM 4.9 mmol/L (3.5-5.1); TOTAL BILIRUBIN 2.2 mg/dL (0.0-1.0)
--- NOTE | 2021-01-11 14:07 | NUR ---
Pt taken to CT via rrishabh.
[2021-01-11 14:09] LABS: CREATINE KINASE MB 1.4 ng/mL (0-3.6)
[2021-01-11] MEDS ORDERED: NACL 0.9% 1,000 ML IV ONE (14:20)
[2021-01-11] MEDS ORDERED: VANCOMYCIN 1,000 MG VIAL ONE (14:58)
--- NOTE | 2021-01-11 16:11 | NUR ---
CALLED REPORT TO MARICEL. STUDENT PICKED UP THE PHONE (CANDY). BED IS READY, REPORT WAS GIVEN, PT WILL BE GOING TO 111B
[2021-01-11] MEDS ORDERED: DOCUSATE SODIUM 100 MG GELCAP PO PRN (16:15)
[2021-01-11] MEDS ORDERED: ACETAMINOPHEN 325 MG TAB PO PRN (16:15)
[2021-01-11] MEDS ORDERED: guaiFENesin DM 200/20 MG-10 ML 10 ML UDC PO PRN (16:15)
[2021-01-11] MEDS ORDERED: ONDANSETRON 4 MG/2 ML VIAL IM/IVP PRN (16:15)
[2021-01-11] MEDS ORDERED: ZOLPIDEM 5 MG TAB PO PRN (16:15)
[2021-01-11] MEDS ORDERED: POTASSIUM CHLORIDE 10 MEQ TABER PO PRN (16:15)
--- NOTE | 2021-01-11 16:30 | NUR ---
RECEIVED PATIENT FROM EMERGENCY DEPARTMENT. REPORTED GIVEN BY ER NURSE SUZAN. PATIENT CHIEF COMPLAINT IS FACIAL PAIN. DX IS FACIAL CELLULITIS D/T SPIDER BITE, RADHA, SEPSIS. PATIENT HAS HX OF CHF, AR, CARDIOMYOPATHY, HTN. NO KNOWN ALLERGIES. IS FULL CODE. PATIENT IN BED AWAKE, ALERT, AOX4. PATIENT CAME FROM HOME. RAPID TEST IS NEGATIVE. CXR RESULTS CHRONIC CARDIOMEGALY, PERICARDIAL EFFUSION SUSPECTED. FACIAL BONE CT RESULTS GENERALIZED EDEMA GRAND ORBITS W/ EXTENSION TO MALAR REGION. CELLULITIS CONSIDERATION. PATIENT IS ON 2LNC, O2 SATS ARE GOOD. PUS DRAINAGE ON BRIDGE OF THE NOSE. LACTIC ACID CRITICALLY HIGH 3.8. SAFETY MEASURES ARE IN PLACE. CALL LIGHT WITHIN REACH. WILL MONITOR NEEDED.
--- NOTE | 2021-01-11 16:38 | NUR ---
Patient will be admitted to care of JOEL LOZANO. Admited to TELEMETRY. Will go to room 111B. Belongings list completed. Report to CANDY (STUDENT OF CRESENCIO).
[2021-01-11 16:49] VITALS: BP 112/72
--- NOTE | 2021-01-11 16:58 | NUR ---
PATIENT IV NS 80 STARTED AT 1657 UNDER OBSERVATION. Addendum: 01/11/21 at 1737 by Kvng Land RN RN PATIENT IV NS 80 STARTED AT 1734 UNDER OBSERVATION.
--- NOTE | 2021-01-11 16:58 | NUR ---
MRSA TAKEN AT THIS TIME. PATIENT IS STABLE. WILL CONTINUE TO MONITOR NEEDED.
[2021-01-11 17:22] LABS: CHOL/HDL RATIO 5.5 (1-4.5); FREE T4 (FREE THYROXINE) 1.2 ng/dL (0.76-1.46); MAGNESIUM 1.7 mg/dL (1.8-2.4); PHOSPHORUS 3.7 mg/dL (2.5-4.9); THYROID STIMULATING HORMONE 1.77 uIU/mL (0.34-3.74)
[2021-01-11] MEDS: NACL 0.9% 1,000 ML IV SCH (17:34)
--- NOTE | 2021-01-11 19:28 | NUR ---
ENDORSED TO NIGHT NURSE FOR CONTINUITY OF CARE. PT IS STABLE
--- NOTE | 2021-01-11 19:30 | NUR ---
RECEIVED PT IN STABLE CONDITION FROM AM NURSE. TELE PT. WITH O22L/NC. NO DISCOMFORT NOTED. DENIES PAIN AT THIS TIME. IVF INFUSING WELL ON THE RT AC G#20.CLEAR AND PATENT. PLAN OF CARE DISCUSSED AND VERBALIZED UNDERSTANDING. FREQ ROUNDS NEEDED. BED ON LOW POSITION. SIDE RAILS UP X2. CALL LI9T AND URINAL WITHIN EAST REACH. WILL CONTINUE TO MONITOR.
[2021-01-11 20:00] VITALS: BP 110/63
[2021-01-11] MEDS ORDERED: PIPERACILLIN/TAZOBACTAM 3.375 GM VIAL IV ONE (20:37)
[2021-01-11] MEDS: PIPERACILLIN/TAZOBACTAM 3.375 GM in DEXTROSE 5% 50 ML IV SCH (20:46)
[2021-01-11] MEDS: carvediloL 6.25 MG TAB PO SCH (20:47)
--- NOTE | 2021-01-11 21:30 | NUR ---
DIDN'T EAT ENOUGH DINNER. REQUESTED FOR SOME SANDWICH. HAD A LITTLE BIT. BUT HAD SOME PEARS.
--- NOTE | 2021-01-11 21:50 | NUR ---
TAVON, JUST CALLED AND GAVE UPDATE ON PT. SHE SAID PT HAD RT INGUINAL HERNIA REPAIR A YEAR AGO AND PT STILL C/O SOME DISCOMFORT / PAIN ON THAT AREA. WILL HAVE MD MADE AWARE .
[2021-01-11 23:45] VITALS: BP 101/58
--- NOTE | 2021-01-11 23:58 | NUR ---
C/O HEAD ACHE . TYLENOL 650 MG PO GIVEN. WILL CONTINUE TO MONITOR.
--- NOTE | 2021-01-12 02:00 | NUR ---
PT AWAKE. ASSISTED PT AND REPOSITIONED FOR COMFORT.
[2021-01-12 04:00] VITALS: BP 103/76
--- NOTE | 2021-01-12 04:00 | NUR ---
VITAL SIGNS STABLE. NO C/O ANY PAIN THIS AM.
[2021-01-12] MEDS ORDERED: PIPERACILLIN/TAZOBACTAM 3.375 GM VIAL IV ONE (04:12)
[2021-01-12] MEDS: PIPERACILLIN/TAZOBACTAM 3.375 GM in DEXTROSE 5% 50 ML IV SCH ×3 (04:41→21:04)
[2021-01-12] MEDS: NACL 0.9% 1,000 ML IV SCH ×3 (04:45→21:03)
--- NOTE | 2021-01-12 06:00 | NUR ---
MADE ROUNDS. PT IS ASLEEP. NO S/S OF ANY DISCOMFORT NOTED.
[2021-01-12 06:35] LABS: BASOPHILS % (AUTO) 0.2 % (0.0-2.0); EOSINOPHILS # (AUTO) 0.2 K/uL (0-0.4); EOSINOPHILS % (AUTO) 1.4 % (0.0-4.0); HEMATOCRIT 36.1 % (36-52); HEMOGLOBIN 11.7 g/dL (12.0-18.0); LYMPHOCYTES # (AUTO) 0.5 K/uL (2.0-11.5); MEAN CORPUSCULAR HEMOGLOBIN 29 pg (27-31); MEAN CORPUSCULAR HGB CONC 33 g/dL (33-37); MEAN CORPUSCULAR VOLUME 89.1 fL (80-94); MONOCYTES # (AUTO) 0.9 K/uL (0.8-1.0); MONOCYTES % (AUTO) 8.4 % (1.7-9.3); NEUTROPHILS # (AUTO) 9.1 K/uL (1.8-7.7); PLATELET COUNT (AUTO) 89 K/uL (140-450); RED BLOOD CELL COUNT(AUTO) 4.05 MIL/uL (4.20-6.10); WHITE BLOOD COUNT (AUTO) 10.7 K/uL (4.8-10.8)
--- NOTE | 2021-01-12 06:57 | NUR ---
PATIENT HAS BEEN SCREENED AND CATEGORIZED LOW NUTRITION RISK. PATIENT WILL BE SEEN WITHIN 7 DAYS OF ADMISSION. 01/19/21 LOLY WEBER MS, RDN
[2021-01-12 07:19] LABS: ANION GAP 13.5 (8-16); CARBON DIOXIDE 21.5 mmol/L (21-32); CREATININE 1.6 mg/dL (0.6-1.3)
[2021-01-12 07:28] LABS: LYMPHOCYTES % (AUTO) 5.1 % (20.5-51.1); NEUTROPHILS % (AUTO) 84.9 % (42.2-75.2)
--- NOTE | 2021-01-12 07:30 | NUR ---
ENDORSED PT IN STABLE CONDITION TO AM NURSE.
[2021-01-12 08:00] VITALS: BP 103/76
[2021-01-12] MEDS: carvediloL 6.25 MG TAB PO SCH ×2 (09:00→21:05)
[2021-01-12] MEDS: PANTOPRAZOLE 40 MG TABEC PO SCH (09:09)
[2021-01-12] MEDS: ATORVASTATIN 20 MG TAB PO SCH (09:09)
[2021-01-12] MEDS: FLUoxetine 10 MG CAP PO SCH (09:10)
[2021-01-12 12:00] VITALS: BP 115/69
--- NOTE | 2021-01-12 12:30 | NUR ---
SCHEDULED MEDICATIONS DUE GIVEN. WILL CONTINUE TO MONITOR.
--- NOTE | 2021-01-12 14:20 | NUR ---
ASSISTED PATIENT WITH URINAL. CONDITION UNCHANGED. WILL CONTINUE TO MONITOR.
[2021-01-12 16:00] VITALS: BP 107/69
[2021-01-12 16:12] LABS: APPEARANCE,URINE CLEAR (CLEAR); BILIRUBIN,URINE NEGATIVE (NEGATIVE); BLOOD, URINE NEGATIVE (NEGATIVE); COLOR,URINE YELLOW (YELLOW); LEUKOCYTE ESTERASE ,URINE NEGATIVE (NEGATIVE); NITRITE, URINE NEGATIVE (NEGATIVE); PH,URINE 5.5 (5.0-9.0); UGLUCOSE NEGATIVE (NEGATIVE)
[2021-01-12] MEDS: FUROSEMIDE 40 MG/4 ML VIAL IVP SCH (16:38)
--- NOTE | 2021-01-12 16:38 | NUR ---
SCHEDULED MEDICATIONS DUE GIVEN. WILL CONTINUE TO MONITOR.
[2021-01-12 16:53] LABS: BARBITURATE, URINE NEGATIVE ng/ml (NEG <=200); BENZODIAZEPINE, URINE NEGATIVE ng/mL (NEG <=200); CANNABINOID, URINE NEGATIVE ng/mL (NEG <=50); COCAINE, URINE NEGATIVE ng/mL (NEG <=300); OPIATE, URINE NEGATIVE ng/mL (NEG <=2000); PHENCYCLIDINE SCREEN,URINE NEGATIVE ng/mL (NEG <=25)
--- NOTE | 2021-01-12 19:10 | NUR ---
GAVE REPORT TO ROLLER PAINTER NURSE FOR CONTINUITY OF CARE. PATIENT IN STABLE CONDITION.
--- NOTE | 2021-01-12 19:12 | NUR ---
RECEIVED PT IN STABLE CONDITION FROM AM NURSE. PT IS AWAKE,ALERT AND ORIENTED X 3. ON TELE MONITOR . NO C/O ANY DISCOMFORT NOR PAIN NOTED. BEDREST. WITH FACIAL SWELLING. HAS IVF INFUSING WELL ON THE RT FA G#20. CLEAR AND PATENT. FREQ ROUNDS NEEDED. BED ON LOW POSITION. SIDE RAILS UP X2 AND CALL LIGHT WITHIN REACH. WILL CONTINUE TO MONITOR.
[2021-01-12 20:00] VITALS: BP 125/77
--- NOTE | 2021-01-12 21:30 | NUR ---
REPOSITIONED FOR COMFORT. NO C/O ANY PAIN NOTED.
--- NOTE | 2021-01-12 22:15 | NUR ---
PT REQUESTED FOR SOME SNACK. PROVIDED WITH PUDDING.
[2021-01-13] VITALS: BP 107/62
--- NOTE | 2021-01-13 | NUR ---
,NARCISO ROUNDS. PT ASLEEP. NO S/S OF ANY DISCOMFORT NOTED.
--- NOTE | 2021-01-13 02:30 | NUR ---
MADE ROUNDS. PT SLEEPING . NO S/S OF ANY DISCOMFORT NOTED.
[2021-01-13] MEDS: HYDROcodone/APAP 7.5/325 MG 1 TAB PO PRN (03:21)
[2021-01-13 04:00] VITALS: BP 113/72
--- NOTE | 2021-01-13 04:21 | NUR ---
CHECKED ON PT. ASLEEP. NO S/S OF ANY PAIN NOTED.
[2021-01-13] MEDS: PIPERACILLIN/TAZOBACTAM 3.375 GM in DEXTROSE 5% 50 ML IV SCH ×3 (04:48→20:24)
--- NOTE | 2021-01-13 06:30 | NUR ---
MADE ROUNDS. PT SLEEPING. NO DISCOMFORT NOTED.
--- NOTE | 2021-01-13 07:15 | NUR ---
ENDORSED PT IN STABLE CONDITION TO AM NURSE.
--- NOTE | 2021-01-13 07:38 | NUR ---
RECEIVED REPORT FROM NIGHT NURSE FOR CONTINUITY OF CARE. PT IS STABLE, PT HAS FACIAL SWELLING. PT HAS RAC 20G INFUSING NS AT 80 ML/H, PT ON 2L NC, PT ON CARDIAC DIET AND REQUIRES HELP FEEDING DUE TO ORBITAL SWELLING. PT IS STABLE, SAFETY MEASURES IN PLACE, WILL CONTINUE TO MONITOR.
[2021-01-13 08:00] VITALS: BP 115/67
[2021-01-13 08:06] LABS: T4 (THYROXINE) 5.5 ug/dL (4.5-12.0)
[2021-01-13] MEDS: PANTOPRAZOLE 40 MG TABEC PO SCH (09:07)
[2021-01-13] MEDS: FLUoxetine 10 MG CAP PO SCH (09:07)
[2021-01-13] MEDS: carvediloL 6.25 MG TAB PO SCH ×2 (09:07→20:24)
[2021-01-13] MEDS: ATORVASTATIN 20 MG TAB PO SCH (09:08)
[2021-01-13] MEDS: FUROSEMIDE 40 MG/4 ML VIAL IVP SCH ×2 (09:10→16:57)
--- NOTE | 2021-01-13 09:14 | NUR ---
ADMINISTERED SCHEDULED MEDICATION, MEDICATION EDUCATION PROVIDED. PT TOLERATED WELL. PT IS STABLE, WILL CONTINUE TO MONITOR.
--- NOTE | 2021-01-13 09:51 | NUR ---
SOCIAL WORK NOTE: Patient's Orientation Unable To Assess Information Provided By TAVON CHI Comments SW WAS UNABLE TO MEET PATIENT AT BEDSIDE. SW COMPLETED ASSESSMENT WITH PATIENT'S . Supervisor [employer], Realtionship and Phone Number TAVON CHI [phone] Healthcare Power of Hospice Consultant No Does Patient Have a POLST No Identifying Problems No Social Work Triggers Is A Social Work Consult Needed No Mandate Report Filed No Explanation Of Identifying Problems PATIENT IS A 65-YEAR-OLD MALE ADMITTED FOR SEPSIS AND ACUTE KIDNEY INJURY. PATIENT HAS PMHX OF CARDIAC DISORDERS AND HYPERTENSION. Admitted From Home Pre-Admission Level Of Functioning Status Assist With ADL Level Of Functioning Comment PER , PATIENT REQUIRES ASSISTANCE BATHING, PREPARING MEALS, CLEANING, TRANSPORTATION, AND GETTING DRESSED. Prior Resources/Services Used In Last 12 Months No Prior Resources Used Prior DME Walker Dialysis Comments N/A Living Situation Lives With Family House Patient Had Caregiver [place] and Contact Number Of Designated Caregiver TAVON [facility]I Home Support CG/Fam Able To Meet Need Financial Issues No Known Financial Issue Referral To The Financial Counselor Needed No Factors/Needs No D/C Needs Identified Pt/Rep Participated In Discharge Plan Yes Patient/Family Agress With Discharge Plan Yes Discharge Plan Comments TENTATIVE DISCHARGE PLAN IS FOR PATIENT TO RETURN HOME. DC Plan Status Initiated
[2021-01-13] MEDS ORDERED: VANCOMYCIN PER PHARMACY MC PRN (10:05)
[2021-01-13] MEDS: NACL 0.9% 1,000 ML IV SCH (10:06)
[2021-01-13 12:00] VITALS: BP 116/76
[2021-01-13] MEDS: VANCOMYCIN 1,000 MG in DEXTROSE 5% 250 ML IV SCH (12:06)
--- NOTE | 2021-01-13 12:09 | NUR ---
ADMINISTERED SCHEDULED MEDICATION, MEDICATION EDUCATION PROVIDED. PT TOLERATED WELL. PT IS STABLE. ELECTRON BEAM PHOTO MASK MAKER IN ROOM, WILL CONTINUE TO MONITOR.
--- NOTE | 2021-01-13 14:09 | NUR ---
DC PLANNIN YRS OLD MALE PATIENT WAS ADMITTED FROM HOME WITH A DX OF SEPSIS AND ACUTE KIDNEY INJURY. PT HAS A HX OF CHF, COPD, AND HTN. CT OF FACIAL SHOWED CELLULITIS OF THE FACE AND LEFT MASTOID AIR CELL DISEASE. VENOUS ULTRASOUND SHOWED NO DVT. RAPID COVID TEST NEGATIVE. STARTED ON VANCOMYCIN AND ZOSYN IV ABX. CONSULTED WITH NEPHRO, ID, CARDIO. DC PLAN TO GO HOME WHEN STABLE. CALLED PT'S INSURANCE [facility] SPOKE WITH SUZANNE, UPDATED CLINICALS AND PE SUZANNE WILL CHANGE IT TO INPATIENT STATUS. CM TO FOLLOW Addendum: 01/14/21 at 1128 by Blaire Pena RN DC PLANNING: PT HAS AN ORDER FOR TRANSFER TO HIGHER LEVEL OF CARE FOR ENT SURGEON FOR SUSPECTED FUNGAL INFECTION. CALLED [facility] INSURANCE SPOKE WITH LIZZIE FERMIN STATED SINCE PATIENT HAS MEDICARE PRIMARY YOU CAN SEND IT ANYWHERE. CALLED DR WEBB OFFICE SPOKE WITH JOSE MANUEL STATED DR RATLIFF WON'T TAKE ANY CONSULT FROM [facility] AND RECOMMENDED TO DC PATIENT AND FOLLOW UP WITH HIM OUT PATIENT. I SPECIFICALLY ASKED TO TALK TO DR RATLIFF BUT THE CILNICAL SCIENTIST WAS TOLD HE DOESN'T SEE ANY PATIENT AT [facility] I MENTIONED PT'S INSURANCE [facility] DAY MEDICARE , NO WILLING TO SEE PATIENT. RECEIVED A CALL FROM LIZZIE FERMIN AT [facility] STATED PT CAN GO ANYWHERE THAT ACCEPT. CALLED [facility] SPOKE WITH COLBY LEAL STATED THEY HAVE ENT SURGEON REQUESTED TO BE FAXED FOR REVIEW. FAXED TO [facility] AND [facility]. CM TO FOLLOW Addendum: 01/14/21 at 1342 by Blaire Pena RN DC PLANNING: RECEIVED A CALL FROM [facility] SPOKE WITH KAILA STATED THEY DON'T HAVE A BED AT THIS TIME AND TO CALL BACK TOMORROW, FOR NOW CLOSED THE CASE. [facility] SPOKE WITH COLBY STATED SHE STILL LOOKING [facility]. FAXED [facility], [facility] AND [facility] . ZANDER TO FOLLOW Addendum: 01/14/21 at 1410 by Blaire Pena RN DC PLANNING: RECEIVED A CALL FROM [facility] [phone] SPOKE WITH GAB, REQUESTED ALL THE PAPERWORK TO BE FAXED TO [phone] THIS NUMBER IS THE HIGHER LEVEL REQUEST LINE, PROVIDE MD'S CELL PHONE AND UNIT NUMBER . PER GAB THEY HAVE A COUPLE OF PLACES AND WILL FAX IT. ZANDER TO FOLLOW Addendum: 01/14/21 at 1548 by Blaire Pena RN DC PLANNING: RECEIVED A CALL FROM GAB ,ASKING ABOUT DR RATLIFF , I EXPLAINED THAT SPOKE WITH DR RATLIFF OFFICE AND I WAS TOLD HE IS NOT COMING TO [facility] ANY MORE PER GAB WILL DISCUSS WITH HE GASOLINE POWER SHOVEL OPERATOR AND CALL BACK. CM TO FOLLOW Addendum: 01/15/21 at 1141 by Blaire Pena RN DC PLANNING: CALLED SPOKE WITH [facility] DE GUZMAN STATED THEY HAVE ACCEPTING [facility] OR [facility] AND ACCEPTING DR ÁNGEL NOLAN, HOWEVER PT'S TAVON REFUSED TO GO TO [place]. PER DR WORKMAN SPOKE WITH PT'S AND REFUSED THE TRANSFER. WILL CONTACT PT'S . CM TO FOLLOW Addendum: 01/15/21 at 1158 by Giovanny BALTAZAR CATRACHITA SPOKE WITH PATIENT'S JASON AND DISCUSSED DISCHARGE PLAN FOR PATIENT. CATRACHITA DISCUSSED REFUSAL OF HLOC FOR ENT SURGEON WITH PATIENT'S . PATIENT'S STATED THAT SHE REFUSES TO GO TO [place] AND WOULD LIKE SOMETHING CLOSER. CATRACHITA NOTIFIED PATIENT'S THAT MULTIPLE CONTRACTED FACILITIES HAVE BEEN CONTACTED, BUT THIS [place] FACILITY IS THE ONLY FACILITY WITH AVAILABLE BED. PATIENT'S WAS FIRM WITH REFUSING HLOC TREATMENT AND STATED THAT PATIENT DOSE NOT NEED ENT SURGEON. PATIENT STATED SHE WOULD BE OPEN TO CLOSER FACILITIES. PATIENT'S STATED THAT SHE WOULD CONTACT HER INSURANCE. SW PROVIDED DIRECT LINE TO PATIENT'S . CATRACHITA WILL REMIAN AVAILABLE IF FURTHER ISSUES ARISE. Addendum: 01/16/21 at 1204 by Blaire Pena RN DC PLANNING: [facility] [phone] SPOKE WITH GAB STATED SHE IS WORKING ON IT TO TRANSFER TO [facility] BUT NO BED AT THIS TIME. CALLED [facility] SPOKE WITH ABHIJIT LEAL STATED CASE DECLINE AND DR JARAD MORALEZ DR STATED PT NEEDS TERTIARY CARE. CM TO FOLLOW Addendum: 01/16/21 at 1444 by Blaire Pena RN DC PLANNING: CALLED [facility] SPOKE WITH TREVON PROVIDE ALL THE INFO AND PER TREVON PUT ME ON HOLD AND SPOKE WITH HER ADMIN RN AND STATED THEY DECLINE THE CASE BECAUSE NO BED.I ASKED HER CAN THE ENT REVIEW THE CASE PER TREVON THEY DON'T HAVE A BED AND NO USE TO LOOK FOR ENT RECEIVED A CALL FROM [facility] UPDATED PT'S CLINICAL AND PROVIDE DR MALDONADO'S CELL PHONE CM TO FOLLOW Addendum: 01/16/21 at 1456 by Blaire Pena RN DC PLANNING; SPOKE WITH PT'S TAVON DISCUSSED THE CONCERN WITH THE DELAY OF TRANSFERRING PATIENT TO ACCEPTING FACILITY. I EXPLAINED [facility] DENIED PATIENT AND KOLBY RIVERA DENIED THE DAY BEFORE AND THEY ARE REVIEWING IT AGAIN. SHE STATED SHE TALK TO HER AND HE TOLD HER HE WANTED TO GO AND GET TREATED MAY, TAVON AGREED AND WILLING HER TO GO TO ANY ACCEPTING FACILITIES. CALLED INSURANCE SPOKE WITH GAB ZANDER NOTIFIED HER PT AND HIS ARE ACCEPTING ANY FACILITIES TO GO. CM TO FOLLOW Addendum: 01/16/21 at 1530 by Blaire Pena RN DC PLANNING: [facility] SPOKE WITH CHRIS EDGAR TO CALL DR NELSON IS ACCEPTING DR MENESES TO [facility] TO CALL [phone] PT CAN GO TO ROOM 204 # TO GIVE REPORT [phone] [facility] AUTH# [id number] WILL ARRANGE TRANSPORT. NOTIFIED PT'S AND WANTED THE NURSE TO CALL HER NOTIFIED CRESENCIO TO CALL PT'S . CM TO FOLLOW Addendum: 01/16/21 at 1604 by Kat Solorio CM DARWIN CUFF SLITTER: TRANSPORTATION SET UP WITH [facility] [phone] FOR 4:30 PM. SHERRI DUPONT
--- NOTE | 2021-01-13 14:43 | NUR ---
ADMINISTERED SCHEDULED MEDICATION, MEDICATION EDUCATION PROVIDED. PT TOLERATED WELL. PT ASLEEP, WILL CONTINUE TO MONITOR
--- NOTE | 2021-01-13 15:47 | NUR ---
UPDATED PT'S ON PT'S PLAN OF CARE. WANTS BEHAVIORAL HEALTH TO SEE PT. WILL INFORM MD. Addendum: 01/13/21 at 1551 by Angelique Feldman RN NOTIFIED DR WILL
--- NOTE | 2021-01-13 15:53 | NUR ---
RECEIVED [place] FOR CONSULT WITH DR CRAFT FOR THOUGHTS OF DEPRESSION AND VERBALIZING TO THAT PT BELIEVES IT'S HIS TIME. WILL NOTIFIED DR CRAFT.
[2021-01-13 16:00] VITALS: BP 115/61
--- NOTE | 2021-01-13 19:27 | NUR ---
RECEIVED BEDSIDE REPORT FROM DAY RN. PT IS AWAKE,ALERT AND ORIENTED X 3. ON TELE MONITOR . NO C/O ANY DISCOMFORT PT DENIES PAIN AT THIS TIME. PT IS BEDREST. WITH FACIAL SWELLING PER PT UNABLE TO OPEN EYES. FALL PRECAUTION IN PLACE. HAS IVF INFUSING WELL ON THE RT AC 20G. CLEAR AND PATENT. FREQ ROUNDS NEEDED. BED ON LOW POSITION. SIDE RAILS UP X2 AND CALL LIGHT WITHIN REACH. POC DISCUSSED WITH PT. WILL CONTINUE TO MONITOR.
--- NOTE | 2021-01-13 19:27 | NUR ---
ENDORSE PT TO NIGHT NURSE FOR CONTINUITY OF CARE
[2021-01-13 20:00] VITALS: BP 137/79
--- NOTE | 2021-01-13 20:24 | NUR ---
PATIENT IS UPSET D/T NO IMPROVEMENT IN SWELLING. PT CANNOT OPEN HIS EYES D/T SWELLING. NO SWELLING IN MOUTH OR TONGUE NOTED OR REPORTED. PT STATES HIS FACE AND EYES FEEL HARD D/T SWELLING DENIES PAIN. CLEANED PTS FACE WITH WARM WASH CLOTH AND APPLIED WARM WASH CLOTH OVER EYES. PT STATES, "THANK YOU IT FEELS BETTER." THERE IS NO DRAINAGE NOTED. IT IS CRUSTED OVER NOSE AND MOUTH. POC DISCUSSED WITH PT. PT RECEIVING IV ABX FOR INFECTION. LIN MEDICATIONS GIVEN PER ORDERS. ALL NEEDS MET. CALL LIGHT IS WITHIN REACH. WILL CONTINUE TO MONITOR. Addendum: 01/13/21 at 2242 by Lily Mendoza RN MOUTH IS EDEMATOUS, TONGUE IS NOT SWOLLEN AND IS MIDLINE. PTS VOICE IS MUMBLING AND DIFFICULT TO UNDERSTAND.
--- NOTE | 2021-01-13 21:30 | NUR ---
DR MALDONADO IN TO ASSESS PT. PER MD PT NEEDS TRANSFER TO HIGHER LEVEL OF CARE FOR EENT SURGEON. ORDER PLACED. PT WAS ABLE TO OPEN L EYE SLIGHTLY VISION IS INTACT.
[2021-01-14] VITALS: BP 134/92
--- NOTE | 2021-01-14 | NUR ---
VITAL SIGNS ARE WITHIN NORMAL LIMITS. PT DENIES PAIN. PT REPORTS DISCOMFORT D/T UNABLE TO OPEN EYES. POC REVIEWED WITH PT. PT VERBALIZED UNDERSTANDING.
--- NOTE | 2021-01-14 02:00 | NUR ---
ROUNDS MADE. PT APPEARS TO BE SLEEPING. CHEST RISE AND FALL NOTED. CALL LIGHT IS WITHIN REACH.
[2021-01-14 04:00] VITALS: BP 108/65
--- NOTE | 2021-01-14 04:00 | NUR ---
VITAL SIGNS ARE WITHIN NORMAL LIMITS. ALL SAFETY MEASURES ARE IN PLACE. CALL LIGHT IS WITHIN REACH.
[2021-01-14] MEDS: PIPERACILLIN/TAZOBACTAM 3.375 GM in DEXTROSE 5% 50 ML IV SCH ×3 (04:07→20:27)
[2021-01-14 06:13] LABS: BASOPHILS # (AUTO) 0.1 K/uL (0.00-0.22); BASOPHILS % (AUTO) 1.1 % (0.0-2.0); EOSINOPHILS # (AUTO) 0.1 K/uL (0-0.4); EOSINOPHILS % (AUTO) 1.3 % (0.0-4.0); HEMOGLOBIN 13.1 g/dL (12.0-18.0); LYMPHOCYTES # (AUTO) 0.9 K/uL (2.0-11.5); LYMPHOCYTES % (AUTO) 17.5 % (20.5-51.1); MEAN CORPUSCULAR HEMOGLOBIN 29 pg (27-31); MEAN CORPUSCULAR HGB CONC 33 g/dL (33-37); MEAN CORPUSCULAR VOLUME 88.3 fL (80-94); MONOCYTES # (AUTO) 0.5 K/uL (0.8-1.0); MONOCYTES % (AUTO) 9.4 % (1.7-9.3); NEUTROPHILS # (AUTO) 3.6 K/uL (1.8-7.7); NEUTROPHILS % (AUTO) 70.7 % (42.2-75.2); PLATELET COUNT (AUTO) 92 K/uL (140-450); RED BLOOD CELL COUNT(AUTO) 4.53 MIL/uL (4.20-6.10); RED CELL DISTRIBUTION WIDTH 16.9 % (11.6-13.7); WHITE BLOOD COUNT (AUTO) 5.1 K/uL (4.8-10.8)
[2021-01-14 06:36] LABS: ANION GAP 15.4 (8-16); CARBON DIOXIDE 21.2 mmol/L (21-32); CREATININE 1.2 mg/dL (0.6-1.3); POTASSIUM 3.6 mmol/L (3.5-5.1)
--- NOTE | 2021-01-14 06:37 | NUR ---
IV ON RAC WAS PULLED OUT BLEEDING WAS WELL CONTROLLED. NEW IV ON RAC 22G ON FIRST ATTEMPT. PT TOLERATED WELL. GAVE PT LIZBETH CRACKERS PER REQUEST. ALL NEEDS MET. CALL LIGHT IS WITHIN REACH.
[2021-01-14] MEDS: NACL 0.9% 1,000 ML IV SCH (06:39)
[2021-01-14 06:44] LABS: MAGNESIUM 1.6 mg/dL (1.8-2.4); PHOSPHORUS 3.4 mg/dL (2.5-4.9)
--- NOTE | 2021-01-14 07:30 | NUR ---
GAVE BEDSIDE REPORT TO DAY RN. PT ENDORSED IN STABLE CONDITION.
--- NOTE | 2021-01-14 08:27 | NUR ---
Patient awake, alert and able to verbalize needs. Unable to open eyes due to edema. Complained of a headache and medication administered as ordered. Safety co measures in place and has no further needs.
[2021-01-14] MEDS: PANTOPRAZOLE 40 MG TABEC PO SCH (10:17)
[2021-01-14] MEDS: ATORVASTATIN 20 MG TAB PO SCH (10:17)
[2021-01-14] MEDS: FUROSEMIDE 40 MG/4 ML VIAL IVP SCH ×2 (10:18→17:32)
[2021-01-14] MEDS: FLUoxetine 10 MG CAP PO SCH (10:18)
[2021-01-14] MEDS: carvediloL 6.25 MG TAB PO SCH ×2 (10:18→20:27)
[2021-01-14 10:47] VITALS: BP 142/92
--- NOTE | 2021-01-14 11:02 | NUR ---
Patient's magnesium is 1.[address] Montoya and awaiting orders.
[2021-01-14] MEDS ORDERED: MAG SULF 2000 MG/WATER PREMIX 50 ML IV ONE (12:55)
[2021-01-14] MEDS: VANCOMYCIN 1,000 MG in DEXTROSE 5% 250 ML IV SCH (13:23)
[2021-01-14 17:21] VITALS: BP 140/86
--- NOTE | 2021-01-14 19:30 | NUR ---
RECEIVED BEDSIDE REPORT FROM DAY RN. PT IS AWAKE,ALERT AND ORIENTED X 3. ON TELE MONITOR . RESPIRATIONS ARE EQUAL AND UNLABORED ON ROOM AIR. NO C/O ANY DISCOMFORT PT DENIES PAIN AT THIS TIME. PT IS BEDREST. WITH FACIAL SWELLING PER PT UNABLE TO DIFFICULT TO OPEN EYES. PT OPEN L EYE SLIGHTLY VISION INTACT. MOUTH IS EDEMATOUS, TONGUE NOT SWOLLEN AND MIDLINE NO PROBLEMS SWALLOWING. FALL PRECAUTION IN PLACE. IV ON RAC 22G SL. CLEAR AND PATENT. ON STANDARD ISOLATION. FREQ ROUNDS NEEDED. BED ON LOW POSITION. SIDE RAILS UP X2 AND CALL LIGHT WITHIN REACH. POC DISCUSSED WITH PT. WILL CONTINUE TO MONITOR.
--- NOTE | 2021-01-14 19:42 | NUR ---
CHRIS FROM [facility] CALLED AND THEY WILL ACCEPT PATIENT. GAVE DR. NELSON PHONE NUMBER [phone], NOTIFIED DR. WILL.
[2021-01-14] MEDS ORDERED: PANT40EC56 PO (19:53)
[2021-01-14] MEDS ORDERED: DEXT5SYR3 PO (19:53)
[2021-01-14] MEDS ORDERED: PIPE1SOL IV (19:53)
[2021-01-14] MEDS ORDERED: ACET-1182 PO (19:53)
[2021-01-14] MEDS ORDERED: Vancomycin Per Pharmacy MC (19:53)
[2021-01-14] MEDS ORDERED: ACET-9531 PO (19:53)
[2021-01-14] MEDS ORDERED: DOCU-299 PO (19:53)
[2021-01-14 20:00] VITALS: BP 131/76
[2021-01-14] MEDS: HYDROcodone/APAP 7.5/325 MG 1 TAB PO PRN (20:27)
--- NOTE | 2021-01-14 20:27 | NUR ---
VITAL SIGNS ARE STABLE. ADMIN LIN COREG FOR BP 131/76 HR 64. ALL LIN MEDICATIONS GIVEN PER ORDERS. ADMIN NORCO FOR PAIN. ALL NEEDS MET. CALL LIGHT IS WITHIN REACH.
--- NOTE | 2021-01-14 21:14 | NUR ---
SPOKE WITH PATIENT'S TAVON LAZARO [phone] IS REFUSING FOR PATIENT TO GO TO [facility]. PER , "TRUFANT IS TOO FAR HE IS NOT FROM HERE. HE IS FROM [facility] I REFUSED CANCEL THE TRANSFER HE IS NOT GOING." IS REQUESTING TO SPEAK WITH DOCTOR. EXPLAINED TO WHY PATIENT IS BEING TRANSFERRED HE NEEDS TO BE SEEN BY ENT SPECIALIST. PT HAS POSSIBLE FUNGAL INFECTION CAUSING THE FACIAL SWELLING EXPLAINED WE DO NOT HAVE THE SPECIALIST HE NEEDS HERE. PER SHE DOES NOT UNDERSTAND WHY HE CANNOT GET TREATED HERE. NOTIFIED DR WILL TO SPEAK WITH .
--- NOTE | 2021-01-14 21:15 | NUR ---
CALLED CHRIS OF [facility] TRANSFER CENTER TO LET HER KNOW THAT PT'S AND PT REFUSED THE TRANSFER TO [facility].
--- NOTE | 2021-01-14 21:15 | NUR ---
SPOKE WITH FINE ARTS MODEL AT [facility] AT [phone] AND GAVE REPORT FOR NITHYA LAZARO. PT WILL BE GOING TO ROOM 211B UNDER DR CHADHA. ESCOBAR IS ARRANGE FOR EXECUTIVE ASST AT 2230. Addendum: 01/14/21 at 2237 by Lily Mendoza RN WRONG TIME 2111
--- NOTE | 2021-01-14 21:30 | NUR ---
SPOKE WITH PATIENT'S TAVON FOR APPROX 20MIN. TAVON SPOKE WITH DR. WILL DOCTOR EXPLAINED WHY PATIENT NEEDS TO BE TRANSFERRED. PER SHE STILL REFUSING DOES NOT WANT PT TO GO TO [facility]. TAVON SPOKE WITH MR IVETH. PATIENT IS NOW REFUSING WELL. EXPLAINED TO AGAIN WHAT IS BEING DONE HERE FOR PATIENT BUT HE NEEDS TO BE TRANSFERRED URGENTLY TO BE SEEN BY ENT SPECIALIST. WAS FOCUSSED ON PATIENT CHF. STATES, "I WAS TOLD HIS EF IS 10-15% TODAY ABOUT 6 MO AGO IT WAS 30% HIS EYES USUALLY GET SWOLLEN ON AND OFF WHY CANT HE GET TREATED HERE." EXPLAINED TO WE DO NOT HAVE ENT SPECIALIST HERE PT HAS BUILDING SUPERINTENDENT HERE BUT HE NEEDS TO BE TREATED FOR POSSIBLE FUNGAL INFECTION IT NEEDS TO BE CONFIRM BY ENT SPECIALIST. PT REQUESTING TO SPEAK WITH RESIDENTIAL DOOR UNIT INSTALLER. WILL ENDORSE IN AM. CONNECTED THE CALL WITH PATIENT. WILL CONTINUE TO MONITOR.
--- NOTE | 2021-01-14 21:50 | NUR ---
SPOKE WITH DR. WILL AND SHE IS AWARE PATIENT AND REFUSED TO BE TRANSFERRED.
--- NOTE | 2021-01-14 22:14 | NUR ---
SPOKE WITH EMAN CHIEF LEGAL OFFICER FROM [facility]. HE IS AWARE PATIENT IS NO LONGER BEING TRANSFERRED BECAUSE PATIENT AND ARE REFUSING.
[2021-01-15] VITALS (7 sets, daily range): BP systolic 97–146; BP diastolic 45–91
--- NOTE | 2021-01-15 | NUR ---
VITAL SIGNS ARE WITHIN NORMAL LIMITS. PT RESTING COMFORTABLY IN BED DENIES ANY DISCOMFORT. ALL SAFETY MEASURES ARE IN PLACE.
--- NOTE | 2021-01-15 02:04 | NUR ---
ROUNDS MADE. PATIENT APPEARS TO BE SLEEPING. CHEST RISE AND FALL NOTED. CALL LIGHT IS WITHIN REACH. SAFETY MEASURES ARE IN PLACE.
[2021-01-15] MEDS: PIPERACILLIN/TAZOBACTAM 3.375 GM in DEXTROSE 5% 50 ML IV SCH ×3 (04:00→20:31)
--- NOTE | 2021-01-15 04:00 | NUR ---
VITAL SIGNS ARE WITHIN NORMAL LIMITS. ALL SAFETY MEASURES ARE IN PLACE. WILL CONTINUE TO MONITOR.
[2021-01-15 06:17] LABS: BASOPHILS % (AUTO) 0.9 % (0.0-2.0); EOSINOPHILS # (AUTO) 0.1 K/uL (0-0.4); EOSINOPHILS % (AUTO) 2.2 % (0.0-4.0); HEMOGLOBIN 13.4 g/dL (12.0-18.0); LYMPHOCYTES % (AUTO) 27.7 % (20.5-51.1); MEAN CORPUSCULAR HEMOGLOBIN 29 pg (27-31); MEAN CORPUSCULAR HGB CONC 33 g/dL (33-37); MONOCYTES # (AUTO) 0.4 K/uL (0.8-1.0); MONOCYTES % (AUTO) 12.4 % (1.7-9.3); NEUTROPHILS % (AUTO) 56.8 % (42.2-75.2); PLATELET COUNT (AUTO) 123 K/uL (140-450); RED BLOOD CELL COUNT(AUTO) 4.66 MIL/uL (4.20-6.10); RED CELL DISTRIBUTION WIDTH 16.9 % (11.6-13.7); WHITE BLOOD COUNT (AUTO) 3.6 K/uL (4.8-10.8)
[2021-01-15 07:04] LABS: ANION GAP 13.6 (8-16); CARBON DIOXIDE 23.9 mmol/L (21-32); CREATININE 1.1 mg/dL (0.6-1.3); POTASSIUM 3.5 mmol/L (3.5-5.1)
[2021-01-15 07:12] LABS: MAGNESIUM 1.9 mg/dL (1.8-2.4); PHOSPHORUS 3.2 mg/dL (2.5-4.9)
--- NOTE | 2021-01-15 07:25 | NUR ---
GAVE BEDSIDE REPORT. PT ENDORSED IN STABLE CONDITION.
--- NOTE | 2021-01-15 07:26 | NUR ---
RECEIVED REPORT FROM NIGHT NURSE PATIENT IS SLEEPING ON ROOM AIR, IV INTACT ON RIGHT AC, SINUS RHYTHM ON TELEMONITOR, FOR HLOC FOR ENT SURGEON AND OPTHALMOLOGY EVAL FOR SUSPECTED FUNGAL INFECTION BUT PATIENT REFUSED, FOR WOUND EVAL, SEEN BY DR MARLEY AND NOT MEET CRITERIA FOR HOLD, SEEN BY DR MALDONADO. SAFETY MEASURES IN PLACE AND CALL LIGHT WITHIN REACH. WILL CONTINUE TO MONITOR.
[2021-01-15] MEDS: FUROSEMIDE 40 MG/4 ML VIAL IVP SCH ×2 (08:48→16:47)
[2021-01-15] MEDS: ATORVASTATIN 20 MG TAB PO SCH (08:48)
[2021-01-15] MEDS: PANTOPRAZOLE 40 MG TABEC PO SCH (08:48)
[2021-01-15] MEDS: FLUoxetine 10 MG CAP PO SCH (08:48)
[2021-01-15] MEDS: carvediloL 6.25 MG TAB PO SCH ×2 (08:49→20:32)
--- NOTE | 2021-01-15 08:59 | NUR ---
MEDICATION DUE GIVEN CHECK VITAL SIGNS PRIOR TO MEDICATION BP 120/69 DC 86 PT IS STABLE AND TOLERATED NO DISTRESS NOTED. DENIES PAIN SAFETY MEASURES IN PLACE AND CALL LIGHT WITHIN REACH. WILL CONTINUE TO MONITOR.
--- NOTE | 2021-01-15 09:30 | NUR ---
PT SEEN BY WOUND EVAL NURSE AND RECOMMENDED APPLICATION OF BETADINE OVER THE CHEEKS AND NOSE.
--- NOTE | 2021-01-15 09:38 | NUR ---
WOUND CARE EVALUATION NOTE: WOUND ASSESSMENT DONE TO THIS 65 Y/O PT. AAX4. FACIAL CELLULITIS FROM NOSE BRIDGE EXTENDED TO CHEEKS, NO OPEN ACTIVE WOUND , MULTIPLE STABLE DRY SCABS, SKIN DARKER PIGMENTATION AROUND THE NOSE, MUSHY AND SOFT TO TOUCH. FACIAL CT DONE AND POC DISCUSSED WITH PT. PT. VERBALIZES UNDERSTANDING. POC DISCUSSED WITH DR. WILL. PER DOCTOR SHE IS AWARE OF CT RESULT WITH ID CONSULTATION. PER DOCTOR PT. / WAS TOLD FOR HIGHER LEVEL TRANSFER BUT PT. REFUSED. RECOMMENDATION DISCUSSED. RECOMMENDATIONS: PAINT FACIAL SCABS WITH BETADINE SOLUTION BID AND PRN, PLEASE KEEP AREA DRY AND CLEAN.
[2021-01-15] MEDS: VANCOMYCIN 1,000 MG in DEXTROSE 5% 250 ML IV SCH (11:50)
--- NOTE | 2021-01-15 12:04 | NUR ---
SCHEDULED MEDICATION GIVEN. PATIENT IS NOT IN DISTRESS. WILL CONTINUE TO MONITOR NEEDED.
--- NOTE | 2021-01-15 14:30 | NUR ---
MADE ROUNDS PT IS SLEEPING NO DISTRESS NOTED AND DENIES PAIN,
--- NOTE | 2021-01-15 16:59 | NUR ---
MEDICATION DUE GIVEN CHECK VITAL SIGNS PRIOR TO MEDICATION BP 126/79 IL 97 PT IS STABLE.
--- NOTE | 2021-01-15 19:22 | NUR ---
ENDORSED CONTINUATION PLAN OF CARE TO SALES OFFICE ASSISTANT NURSE. PATIENT IN STABLE CONDITION.
[2021-01-15] MEDS: HYDROcodone/APAP 7.5/325 MG 1 TAB PO PRN (20:30)
--- NOTE | 2021-01-15 20:30 | NUR ---
RECEIVED CALL FROM VALDO Garcia @ THE TRANSFER CENTER AT [facility] TO INFORM THEY WOULD NOT BE ABLE TO ACCEPT PT D/T MST BED SHORTAGE. INSTRUCTED TO HAVE DAYSHIFT GROUNDS RESTORATION SPECIALIST CALL # IN AM TO ASSESS BED AVAILABILITY.
[2021-01-16 01:00] VITALS: BP 136/83
[2021-01-16 04:00] VITALS: BP 123/72
[2021-01-16] MEDS: PIPERACILLIN/TAZOBACTAM 3.375 GM in DEXTROSE 5% 50 ML IV SCH (05:28)
[2021-01-16] MEDS: HYDROcodone/APAP 7.5/325 MG 1 TAB PO PRN (05:34)
[2021-01-16 06:35] LABS: BASOPHILS % (AUTO) 0.9 % (0.0-2.0); EOSINOPHILS # (AUTO) 0.1 K/uL (0-0.4); EOSINOPHILS % (AUTO) 3.2 % (0.0-4.0); HEMATOCRIT 39.5 % (36-52); LYMPHOCYTES % (AUTO) 30.3 % (20.5-51.1); MEAN CORPUSCULAR HEMOGLOBIN 29 pg (27-31); MEAN CORPUSCULAR HGB CONC 33 g/dL (33-37); MEAN CORPUSCULAR VOLUME 87.1 fL (80-94); MONOCYTES # (AUTO) 0.4 K/uL (0.8-1.0); MONOCYTES % (AUTO) 12.5 % (1.7-9.3); NEUTROPHILS # (AUTO) 1.8 K/uL (1.8-7.7); NEUTROPHILS % (AUTO) 53.1 % (42.2-75.2); PLATELET COUNT (AUTO) 148 K/uL (140-450); RED BLOOD CELL COUNT(AUTO) 4.54 MIL/uL (4.20-6.10); RED CELL DISTRIBUTION WIDTH 16.8 % (11.6-13.7); WHITE BLOOD COUNT (AUTO) 3.4 K/uL (4.8-10.8)
--- NOTE | 2021-01-16 07:10 | NUR ---
RECEIVED REPORT FROM MANAGER LONG TERM CARE NURSE FOR CONTINUATION PLAN OF CARE. PATIENT IN BED AOX2. IV SITE IN PLACE AND INTACT. PATIENT WAS GIVEN NORCO AT 0530 FOR PAIN. SAFETY MEASURES ARE IN PLACE. CALL LIGHT WITHIN REACH. WILL CONTINUE TO MONITOR NEEDED.
[2021-01-16 07:11] LABS: ANION GAP 12.9 (8-16); CARBON DIOXIDE 25.6 mmol/L (21-32); CREATININE 1.2 mg/dL (0.6-1.3); POTASSIUM 3.5 mmol/L (3.5-5.1)
[2021-01-16 07:19] LABS: MAGNESIUM 1.8 mg/dL (1.8-2.4); PHOSPHORUS 3.2 mg/dL (2.5-4.9)
[2021-01-16 08:00] VITALS: BP 124/72
[2021-01-16] MEDS: carvediloL 6.25 MG TAB PO SCH (08:28)
[2021-01-16] MEDS: ATORVASTATIN 20 MG TAB PO SCH (08:29)
[2021-01-16] MEDS: FLUoxetine 10 MG CAP PO SCH (08:29)
[2021-01-16] MEDS: FUROSEMIDE 40 MG/4 ML VIAL IVP SCH ×2 (08:29→16:33)
[2021-01-16] MEDS: PANTOPRAZOLE 40 MG TABEC PO SCH (08:32)
--- NOTE | 2021-01-16 08:43 | NUR ---
SCHEDULED MEDICATIONS GIVEN. PATIENT IN BED AWAKE, EATING BREAKFAST. NO DISTRESS NOTED. WILL CONTINUE TO MONITOR NEEDED.
[2021-01-16 12:00] VITALS: BP 106/60
[2021-01-16] MEDS ORDERED: VANCOMYCIN HCL 1.25 GM in DEXTROSE 5% 250 ML IV SCH (12:00)
--- NOTE | 2021-01-16 12:05 | NUR ---
SCHEDULED VANCOMYCIN IV GIVEN. PATIENT IS IN BED ASLEEP. NO DISTRESS NOTED.
--- NOTE | 2021-01-16 16:02 | NUR ---
ENDORSED TO [facility] TALKED TO RASHAUN THE GLOVE MACHINE OPERATOR. PATIENT IS IN STABLE CONDITION.
--- NOTE | 2021-01-16 16:40 | NUR ---
SCHEDULED MEDICATIONS GIVEN. PATIENT IN BED. WILL CONTINUE TO MONITOR NEEDED.
--- NOTE | 2021-01-16 17:00 | NUR ---
PATIENT PICKED UP BY [facility] TO BE TRANSFERRED TO [facility]. PATIENT IS IN STABLE CONDITION UPON LEAVING. IV AC 20G LEFT IN PLACE. IS AWARE. Addendum: 01/16/21 at 1927 by Sita Rodriguez RN DISCHARGED INSTRUCTION GIVEN TO [facility], REMOVED TELEMONITOR AND RETURNED TO FREELANCE DIRECTOR, ID BAND REMOVED, CHANGED PT GOWN AND RETURNED ALL PATIENT BELONGINGS, PT IS STABLE.
== END 2021-01-16 17:00 | disposition short-term general hospital (02) | DRG 871 ==
LOC: MED 12:28 → MTU 15:51 → INTOOBSV 20:08 → OBSVTOIN 20:08 → UNDODISOB 01-12 20:10
PROVIDERS: ADMIT Family Medicine; ATTEND Family Medicine
DX: A41.9 Sepsis, unspecified organism (principal); G93.41 Metabolic encephalopathy; N17.0 Acute kidney failure with tubular necrosis; E43 Unspecified severe protein-calorie malnutrition; I50.43 Acute on chronic combined systolic (congestive) and diastolic (congestive) heart failure; E87.1 Hypo-osmolality and hyponatremia; J98.11 Atelectasis; L03.213 Periorbital cellulitis; I47.2 Ventricular tachycardia; I11.0 Hypertensive heart disease with heart failure; I25.10 Atherosclerotic heart disease of native coronary artery without angina pectoris; J44.9 Chronic obstructive pulmonary disease, unspecified; Z20.822 Contact with and (suspected) exposure to COVID-19; D64.9 Anemia, unspecified; D69.6 Thrombocytopenia, unspecified; I07.1 Rheumatic tricuspid insufficiency; E83.42 Hypomagnesemia; F15.10 Other stimulant abuse, uncomplicated; I71.4 Abdominal aortic aneurysm, without rupture; I25.2 Old myocardial infarction; Z87.891 Personal history of nicotine dependence; Z79.899 Other long term (current) drug therapy; Z68.24 Body mass index [BMI] 24.0-24.9, adult
CPT/HCPCS: 96361; 96365; 96367; 99285; G0378; 36415; 70486; 71045; 80048; 80053; 80202; 80305; 81003; 82150; 82550; 82553; 82570; 83036; 83605; 83690; 83735; 83880; 84100; 84436; 84439; 84443; 84479; 84484; 85025; 85610; 85730; 87040; 87081; 93970; J1940; J2543; J3370; J3475; J7030; J7060